=== PATIENT | female | born 1995 | race Caucasian/White ===

== ENCOUNTER 2024-05-24 10:01 | Inpatient (IN) | payer OTHER ==
[2024-05-21 13:14] LABS: Hematocrit 37.3 % (34.9-44.5); Hemoglobin 11.8 g/dL (12.0-15.5); Platelet Count 324 10x3/uL (150-450)
[2024-05-21 13:50] LABS: HBsAg Index 0.49 S/CO (0-0.99); Hep B Surf Ag Non-Reactive S/CO (NonReactive); Syphilis Antibody Nonreactive (Nonreactive); Syphilis Antibody Index 0.06 S/CO (<1.00 Non-Reactive)
[2024-05-24 10:18] VITALS: BMI 27.2
[2024-05-24] MEDS ORDERED: Bicitra 30 ML UDCUP PO PRN (10:25)
[2024-05-24] MEDS ORDERED: Carboprost 250 MCG/ML AMP IM PRN (10:25)
[2024-05-24] MEDS ORDERED: Diphenoxylate HCl/Atropine Tablet PO PRN (10:25)
[2024-05-24] MEDS ORDERED: Ondansetron PF 4 MG/2 ML Vial IVP PRN ×4 (10:25→16:21)
[2024-05-24] MEDS ORDERED: Promethazine HCl 25 MG/ML VIAL IM PRN ×3 (10:25→16:21)
[2024-05-24] MEDS ORDERED: Misoprostol 200 MCG TAB PR PRN (10:25)
[2024-05-24] MEDS ORDERED: hydrALAZINE 20 MG/ML VIAL SLOW IVP PRN ×2 (10:25→16:21)
[2024-05-24] MEDS ORDERED: fentaNYL 50 mcg/mL 1 mL Vial SLOW IVP PRN ×2 (10:25→11:05)
[2024-05-24] MEDS ORDERED: Acetaminophen 500 MG TAB PO PRN (10:25)
[2024-05-24] MEDS ORDERED: Oxytocin 30 units/NS 500 ML 500 ML IV SCH (10:30)
[2024-05-24] MEDS: Lactated Ringer's 1,000 ML IV SCH (10:30)
[2024-05-24] MEDS ORDERED: HYDROmorphone 0.5 MG/0.5 ML SYRINGE SLOW IVP PRN (11:05)
[2024-05-24] MEDS ORDERED: Meperidine HCl/PF 25 MG (1 mL) VIAL SLOW IVP PRN (11:05)
[2024-05-24] MEDS ORDERED: Naloxone HCl 0.4 mg/ml Vial IVP PRN ×2 (11:05)
[2024-05-24] MEDS ORDERED: Moisturizing Cream (Eucerin) 113 GM JAR TOP PRN (11:05)
[2024-05-24] MEDS ORDERED: Naloxone HCl 0.4 mg/ml Vial IV PRN (11:05)
[2024-05-24] MEDS ORDERED: diphenhydrAMINE 50 MG/ML VIAL IVP PRN (11:05)
[2024-05-24] MEDS ORDERED: Ketorolac Tromethamine 30 MG (1 mL) VIAL IVP SCH (11:15)
[2024-05-24] MEDS ORDERED: Communication Order-Pharmacy FS SCH (11:15)
[2024-05-24] MEDS: CEFAZOLIN 2 GM in Sodium Chloride 0.9% 100 ML IVPB SCH (11:53)
[2024-05-24] MEDS: Famotidine/PF 20 mg/2ml Vial SLOW IVP PRN (11:53)
[2024-05-24] MEDS: Ondansetron PF 4 MG/2 ML Vial ONE (14:19)
[2024-05-24] MEDS: Phytonadione Neonatal 1 MG/0.5 ML AMP ONE (14:20)
[2024-05-24] MEDS: Oxytocin 10 UNITS/ML VIAL ONE (14:20)
[2024-05-24] MEDS: fentaNYL 50 mcg/mL 1 mL Vial ONE (14:20)
[2024-05-24] MEDS: Morphine PF 10 MG/10 ML VIAL ONE (14:20)
[2024-05-24] MEDS: Erythromycin Base 0.5% Oint 1 GM TUBE ONE (14:20)
[2024-05-24] MEDS: PHENYLEPHRINE-NS 100 MCG/ML 10 ML SYRINGE ONE (14:20)
[2024-05-24] MEDS: Ketorolac Tromethamine 30 MG (1 mL) VIAL IVP PRN (15:04)
[2024-05-24] MEDS ORDERED: Acetaminophen 325 MG TAB PO PRN (16:21)
[2024-05-24] MEDS ORDERED: diphenhydrAMINE 25 MG CAP PO PRN (16:21)
[2024-05-24] MEDS ORDERED: Lanolin Ointment 7 GM TUBE TOP PRN (16:21)
[2024-05-24] MEDS ORDERED: Simethicone Chewable 80 MG TAB PO PRN (16:21)
[2024-05-24] MEDS ORDERED: Bisacodyl 10 MG SUPP PR PRN (16:21)
[2024-05-24] MEDS: Docusate 100 MG CAP PO SCH (21:20)
[2024-05-24] MEDS: Ferrous Sulfate 325 MG TAB PO SCH (21:22)
[2024-05-24] MEDS ORDERED: HYDROcodone/Acetaminophen 5/325 mg Tablet PO PRN ×2 (23:15)
[2024-05-25 04:09] LABS: Hematocrit 29.3 % (34.9-44.5); Hemoglobin 9.6 g/dL (12.0-15.5); Mean Corpuscular HGB CONC 32.8 g/dL (32.0-36.0); Mean Corpuscular Hemoglobin 27.4 pg (27.0-33.0); Mean Corpuscular Volume 83.5 fL (81.6-98.3); Mean Platelet Volume 10.8 fL (7.4-10.4); Platelet Count 241 10x3/uL (150-450); RBC Distribution Width 16.1 % (11.5-14.5); Red Blood Cell (RBC) Count 3.51 10x6/uL (3.90-5.03); White Blood Cell (WBC) Count 8.8 10x3/uL (3.5-10.5)
[2024-05-25] MEDS: Prenatal Vitamin 1 TAB PO SCH (09:09)
[2024-05-25] MEDS: Ibuprofen 800 MG TAB PO SCH (16:07)
[2024-05-25 20:06] VITALS: BP 128/77; TEMP 97.8
[2024-05-25] MEDS: Boostrix 0.5 ML (Tdap) VIAL (>/=7 yrs of age) IM ONE (21:32)
== END 2024-05-26 14:30 | disposition home or self-care (01) | DRG 788 ==
LOC: CSHLD 10:01 → CSHPP 15:42
PROVIDERS: ADMIT Student in an Organized Health Care Education/Training Program; ATTEND Student in an Organized Health Care Education/Training Program
PROC: 10D00Z1 Extraction of Products of Conception, Low, Open Approach (ICD-10-PCS; principal; 2024-05-24)
DX: O32.1XX0 Maternal care for breech presentation, not applicable or unspecified (principal); O24.429 Gestational diabetes mellitus in childbirth, unspecified control; Z3A.39 39 weeks gestation of pregnancy; Z37.0 Single live birth
CPT/HCPCS: 36415; 51702; 85014; 85018; 85027; 85049; 85461; 86780; 86850; 86870; 86900; 86901; 87340; 90384; 96372; J1885; J2274; J2405; J2590; J3010; J3490; J7120